=== PATIENT | female | born 1990 | race Caucasian/White ===

== ENCOUNTER 2022-01-03 04:47 | Emergency (ER) | payer SELFPAY ==
[~2022-01-03] VITALS: Ht 162.6 cm; Wt 94.6 kg
[2022-01-03 05:01] VITALS: BP 129/87
[2022-01-03] MEDS ORDERED: ACYC400T39 PO (05:21)
[2022-01-03] MEDS ORDERED: CEPH-585 PO (05:21)
== END 2022-01-03 06:24 | disposition home or self-care (01) ==
LOC: ER 04:49
DX: S31.40XA Unspecified open wound of vagina and vulva, initial encounter (principal); Z79.2 Long term (current) use of antibiotics; X58.XXXA Exposure to other specified factors, initial encounter; Y93.89 Activity, other specified; Y92.89 Other specified places as the place of occurrence of the external cause; Y99.8 Other external cause status
CPT/HCPCS: 99283

== ENCOUNTER 2022-06-24 18:58 | Emergency (ER) | payer BC ==
[~2022-06-24] VITALS: Ht 162.6 cm; Wt 95.0 kg
[~2022-06-24 18:58] MED LIST: CEPH-585 PO
[2022-06-24 19:01] VITALS: BP 132/86
[2022-06-24] MEDS ORDERED: ketorolac trometh. 30mg/ml inj. IM ONE (20:30)
[2022-06-24] MEDS ORDERED: HYDROcodone/acetaminophen 5mg/325mg tablet PO ONE (20:30)
[2022-06-24] MEDS ORDERED: HYDR-3965 PO (20:41)
== END 2022-06-24 20:48 | disposition home or self-care (01) ==
LOC: ER 18:59
DX: M79.602 Pain in left arm (principal); M79.89 Other specified soft tissue disorders
CPT/HCPCS: 96372; 99283; J1885; A4565